=== PATIENT | female | born 1960 | race Caucasian/White ===

== ENCOUNTER 2024-01-12 07:17 | Outpatient (CLI) | payer BC, SELFPAY | END 2024-01-12 07:18 | disposition home or self-care (01) | LOC: INJ CL 07:21 | PROVIDERS: PCP Nurse Practitioner Family; Visit Provider Family Medicine | DX: M54.16 Radiculopathy, lumbar region (principal); M51.369 Other intervertebral disc degeneration, lumbar region without mention of lumbar back pain or lower extremity pain | CPT/HCPCS: 62323; J0702; Q9966 ==

== ENCOUNTER 2024-04-16 08:01 | Outpatient (CLI) | payer BC, SELFPAY | END 2024-04-16 08:02 | disposition home or self-care (01) | LOC: INJ CL 08:02 | PROVIDERS: PCP Nurse Practitioner Family; Visit Provider Family Medicine | DX: M47.816 Spondylosis without myelopathy or radiculopathy, lumbar region (principal) | CPT/HCPCS: 64493; 64494; J0702; Q9966 ==